=== PATIENT | female | born 1970 | race Caucasian/White ===

== ENCOUNTER 2020-08-09 20:45 | Emergency (ER) | payer BC ==
[~2020-08-09] VITALS: Ht 162.6 cm; Wt 104.1 kg
[2020-08-09 20:51] VITALS: Ht 162.6 cm; Wt 104.1 kg
[2020-08-09] MEDS ORDERED: PACERONE400 MG PO (20:56)
[2020-08-09] MEDS ORDERED: COREG25 MG PO (20:56)
[2020-08-09] MEDS ORDERED: CRESTOR40 MG PO (20:56)
[2020-08-09] MEDS ORDERED: ENTRESTO 24 MG1 EACH PO (20:57)
[2020-08-09] MEDS ORDERED: ALDACTONE50 MG PO (20:57)
[2020-08-09] MEDS ORDERED: LASIX80 MG PO (20:57)
[2020-08-09] MEDS ORDERED: METOLAZONE5 MG PO (20:57)
[2020-08-09] MEDS ORDERED: HUMALOG 30100 UNITS/ (20:58)
[2020-08-09] MEDS ORDERED: RANEXA1000 MG PO (20:58)
[2020-08-09 21:33] LABS: BASOPHILS 1.4 % (0-2); EOSINOPHILS 1.2 % (0-7); HEMATOCRIT 41.5 % (36.0-48.0); HEMOGLOBIN 14.2 g/dL (12-16); LYMPHOCYTES 16.1 % (15-50); MCH 28.6 pg (26.0-34.0); MCHC 34.3 g/dL (31.0-37.0); MCV 83.3 fL (80.0-100.0); MEAN PLATELET VOLUME 9.4 fL (7.4-10.4); MONOCYTES 7.8 % (2-11); NEUTROPHILS 73.5 % (40-80); PLATELET COUNT 104 10x3/uL (130-400); RBC 4.98 10x6/uL (4.00-5.40); RDW 15.6 % (11.5-14.5); WBC 7.8 10x3/uL (4.8-10.8)
[2020-08-09 21:42] LABS: CALC OSMOLALITY 287 mosm/kg (275-300); CALCIUM 9.4 mg/dL (8.5-10.1); CARBON DIOXIDE 29.7 mmol/L (21.0-32.0); CHLORIDE - SERUM 98 mmol/L (98-107); CREATININE - SERUM 1.2 mg/dL (0.6-1.3); GLUCOSE 148 mg/dL (74-106); POTASSIUM - SERUM 3.5 mmol/L (3.5-5.1); SODIUM 139 mmol/L (136-145); UREA NITROGEN 31 mg/dL (7-18); eGFR NON AFRICAN AMERICAN 50 mL/min (90-120)
[2020-08-09 21:43] LABS: APTT 27.5 SECONDS (22.8-39.4); INR 1.11 (0.85-1.17); PROTIME 13.2 SECONDS (11.6-15.0)
[2020-08-09 22:00] LABS: ALBUMIN 3.5 g/dL (3.4-5.0); ALKALINE PHOSPHATASE 69 U/L (30-120); ALT (SGPT) 22 U/L (10-68); BILIRUBIN - TOTAL 0.65 mg/dL (0.2-1.3); CKMB 0.6 U/L (0.0-3.6); CREATINE KINASE 35 UL (21-215); MAGNESIUM - SERUM 2.1 mg/dL (1.8-2.4); PRO BNP 2301 pg/mL (0-125); PROTEIN - SERUM 7.7 g/dL (6.4-8.2)
[2020-08-09 22:01] LABS: TROPONIN-I < 0.017 ng/mL (0.000-0.060)
[2020-08-09 22:24] LABS: D-DIMER-QUANTITATIVE 0.35 ug/mLFEU (0.20-0.54)
[2020-08-09 22:55] VITALS: BP 118/74
== END 2020-08-09 22:55 | disposition home or self-care (01) ==
LOC: D.ER 20:45
PROVIDERS: Family Medicine
DX: I47.1 Supraventricular tachycardia (principal); I42.9 Cardiomyopathy, unspecified; E11.9 Type 2 diabetes mellitus without complications; I50.9 Heart failure, unspecified; E78.5 Hyperlipidemia, unspecified; Z79.4 Long term (current) use of insulin